=== PATIENT | male | born 1935 | race Caucasian/White ===

== ENCOUNTER 2018-09-08 08:50 | Outpatient (CLI) | payer MEDICARE, OTHER ==
[2018-09-08] MEDS ORDERED: OMNIPAQUE 350 MG/ML, 75ML BOTTLE ONE (15:56)
== END 2018-09-08 23:59 | disposition home or self-care (01) ==
LOC: CFH 08:50
PROVIDERS: ATTEND Internal Medicine
DX: J43.9 Emphysema, unspecified (principal); I11.9 Hypertensive heart disease without heart failure; R91.8 Other nonspecific abnormal finding of lung field; I70.0 Atherosclerosis of aorta; R53.1 Weakness; E78.2 Mixed hyperlipidemia; R73.09 Other abnormal glucose
CPT/HCPCS: 71260; Q9967

== ENCOUNTER → 2021-01-02 | Outpatient (CLI) | payer MEDICARE | END | disposition home or self-care (01) | LOC: CFH 08:31 | PROVIDERS: ATTEND Internal Medicine | DX: I77.811 Abdominal aortic ectasia (principal) | CPT/HCPCS: 93978 ==